=== PATIENT | male | born 1955 | race Asian ===

== ENCOUNTER → 2018-05-07 | Outpatient (CLI) | payer OTHER ==
[2018-05-10 11:08] LABS: CHLAMYDIA BY NAA Negative (Negative); GONOCOCCUS BY NAA Negative (Negative); TRICH VAG BY NAA Negative (Negative)
== END | disposition home or self-care (01) ==
LOC: LAB SHORT 10:50 → LAB EV 10:50
PROVIDERS: General Practice
DX: N50.82 Scrotal pain (principal)
CPT/HCPCS: 87086; 87491; 87591; 87661

== ENCOUNTER 2019-04-25 06:43 | Day surgery (SDC) | payer OTHER ==
[~2019-04-25] VITALS: Ht 149.9 cm; Wt 62.9 kg
--- NOTE | 2019-04-25 08:07 | NUR ---
04/25/19 0807 Munira Snyder DAUGHTER AT BEDSIDE HELPING WITH TRANSLATING
== END 2019-04-25 09:05 | disposition home or self-care (01) ==
LOC: ORSCSDS 06:43
PROVIDERS: Internal Medicine Gastroenterology
PROC: 0DBK8ZX Excision of Ascending Colon, Via Natural or Artificial Opening Endoscopic, Diagnostic (ICD-10-PCS; principal; 2019-04-25 08:00)
PROC: 0DBH8ZX Excision of Cecum, Via Natural or Artificial Opening Endoscopic, Diagnostic (ICD-10-PCS; principal; 2019-04-25 08:00)
PROC: 0DBL8ZX Excision of Transverse Colon, Via Natural or Artificial Opening Endoscopic, Diagnostic (ICD-10-PCS; principal; 2019-04-25 08:00)
PROC: 0DBP8ZX Excision of Rectum, Via Natural or Artificial Opening Endoscopic, Diagnostic (ICD-10-PCS; principal; 2019-04-25 08:00)
DX: Z12.11 Encounter for screening for malignant neoplasm of colon (principal); D12.3 Benign neoplasm of transverse colon; D12.2 Benign neoplasm of ascending colon; K62.1 Rectal polyp; K62.89 Other specified diseases of anus and rectum; K64.8 Other hemorrhoids; Z87.891 Personal history of nicotine dependence
CPT/HCPCS: 88305; J0330; J0461; J2405; J2704; J7120

== ENCOUNTER 2019-05-05 15:12 | Emergency (ER) | payer OTHER ==
[~2019-05-05] VITALS: Ht 149.9 cm; Wt 49.9 kg
[2019-05-05 16:23] LABS: BASOPHILS ABSOLUTE AUTO 0.06 K/mm3 (0.00-0.23); BASOPHILS PERCENT AUTO 0 % (0-2); EOSINOPHILS ABSOLUTE AUTO 1.51 K/mm3 (0.00-0.68); EOSINOPHILS PERCENT AUTO 11 % (0-6); Hematocrit 42.6 % (37.0-53.0); Hemoglobin 14.3 g/dL (13.5-17.5); IMMATURE GRAN ABSOLUTE AUTO 0.05 K/mm3 (0.00-0.10); IMMATURE GRAN PERCENT AUTO 0 % (0-1); LYMPHOCYTES ABSOLUTE AUTO 2.36 K/mm3 (0.84-5.20); LYMPHOCYTES PERCENT AUTO 17 % (21-46); MONOCYTES ABSOLUTE AUTO 0.78 K/mm3 (0.16-1.47); MONOCYTES PERCENT AUTO 6 % (4-13); Mean Corpuscular HGB 30.1 pg (26.0-34.0); Mean Corpuscular HGB Conc 33.6 g/dL (31.5-36.5); Mean Corpuscular Volume 90 fL (80-100); Mean Platelet Volume 8.7 fL (9.1-12.4); NEUTROPHILS ABSOLUTE AUTO 8.84 K/mm3 (1.96-9.15); NEUTROPHILS PERCENT AUTO 65 % (41-73); Platelet Count 261 K/mm3 (150-400); RDW Coefficient Variation 11.8 % (11.7-14.2); RDW Standard Deviation 38.8 fL (35.1-46.3); Red Blood Cell Count 4.75 M/mm3 (4.30-5.90)
[2019-05-05 16:42] LABS: Alanine Aminotransfer (ALT/SGP 22 U/L (12-78); Albumin, Blood 3.8 g/dL (3.4-5.0); Alk Phos 102 U/L (50-136); Anion Gap 8 mmol/L (6-16); Aspartate Aminotrans (AST/SGOT 19 U/L (12-37); Bilirubin, Total 0.5 mg/dL (0.1-1.0); Blood Urea Nitrogen 18 mg/dL (8-24); Bun/Creatinine Ratio 21.3 (12.0-20.0); CO2, Blood 26 mmol/L (21-32); Calcium, Blood 8.5 mg/dL (8.5-10.1); Chloride, Blood 107 mmol/L (98-108); Creatinine, Blood 0.84 mg/dL (0.60-1.20); Globulin, Blood 3.8 g/dL (2.2-4.0); Glomerular Filtration Rate >60 (60-); Glucose, Blood 120 mg/dL (70-99); Potassium, Blood 3.2 mmol/L (3.5-5.5); Sodium, Blood 141 mmol/L (136-145); Total Protein, Blood 7.6 g/dL (6.4-8.2)
== END 2019-05-05 22:26 | disposition short-term general hospital (02) ==
LOC: ER 15:12
PROVIDERS: Physician Assistant
DX: M97.02XA Periprosthetic fracture around internal prosthetic left hip joint, initial encounter (principal); Z87.891 Personal history of nicotine dependence
CPT/HCPCS: 27510; 36415; 71045; 73502; 73552; 80053; 85025; 86850; 86900; 86901; 93005; 93010; 96374-59; 96375-59; 99285-25; J1170; J3010

== ENCOUNTER 2021-11-01 16:35 | Inpatient (IN) | payer OTHER ==
[~2021-11-01] VITALS: Ht 149.9 cm; Wt 63.5 kg
[2021-11-01 17:12] LABS: BASOPHILS ABSOLUTE AUTO 0.04 K/mm3 (0.00-0.23); BASOPHILS PERCENT AUTO 0 % (0-2); EOSINOPHILS ABSOLUTE AUTO 0.08 K/mm3 (0.00-0.68); EOSINOPHILS PERCENT AUTO 0 % (0-6); Hematocrit 42.1 % (37.0-53.0); Hemoglobin 14.8 g/dL (13.5-17.5); IMMATURE GRAN PERCENT AUTO 1 % (0-1); LYMPHOCYTES ABSOLUTE AUTO 1.24 K/mm3 (0.84-5.20); LYMPHOCYTES PERCENT AUTO 6 % (21-46); MONOCYTES ABSOLUTE AUTO 1.16 K/mm3 (0.16-1.47); MONOCYTES PERCENT AUTO 6 % (4-13); Mean Corpuscular HGB 30.4 pg (26.0-34.0); Mean Corpuscular HGB Conc 35.2 g/dL (31.5-36.5); Mean Corpuscular Volume 86 fL (80-100); Mean Platelet Volume 8.8 fL (9.1-12.4); NEUTROPHILS ABSOLUTE AUTO 17.16 K/mm3 (1.96-9.15); NEUTROPHILS PERCENT AUTO 87 % (41-73); Platelet Count 257 K/mm3 (150-400); RDW Standard Deviation 38.2 fL (35.1-46.3); Red Blood Cell Count 4.87 M/mm3 (4.30-5.90); White Blood Cell Count 19.78 K/mm3 (4.00-11.30)
[2021-11-01 17:30] LABS: C-REACTIVE PROTEIN, EXT RANGE 15.6 mg/dL (0.000-0.300)
[2021-11-01 17:35] LABS: Albumin, Blood 3.9 g/dL (3.4-5.0); Albumin/Globulin Ratio 0.9 (0.8-1.8); Bun/Creatinine Ratio 24.6 (12.0-20.0); Calcium, Blood 9.5 mg/dL (8.5-10.1); Creatinine, Blood 0.81 mg/dL (0.60-1.20); Globulin, Blood 4.4 g/dL (2.2-4.0); Total Protein, Blood 8.3 g/dL (6.4-8.2)
[2021-11-01 18:24] LABS: Body Fluid Crystals NEG (NEGATIVE)
[2021-11-01 18:27] LABS: Automated BF RBC Count 0.051 M/mm3 (0-0); RBC Count, Body Fluid 51000 /mm3 (0-0)
[2021-11-01 20:46] LABS: Influenza A, PCR NEGATIVE (NEGATIVE); Influenza B, PCR NEGATIVE (NEGATIVE); Resp Syncytial Virus, PCR NEGATIVE (NEGATIVE)
[2021-11-01 20:56] LABS: SARS-Cov-2 (COVID-19) PCR, MMC POSITIVE (NEGATIVE)
[2021-11-01 21:29] LABS: Appearance, Body Fluid Cloudy (Clear); Color, Body Fluid Amber (None-Yellow); Total Cell Count, Body Fluid 100
--- NOTE | 2021-11-02 00:36 | NUR ---
PT SPEAKS VISAYAN, A DIALECT FROM THE [facility]. HE STATES HE DOES NOT UNDERSTAND ALL MY QUESTIONS. RN ATTEMPTED EXERCISE SCIENCE INTERNSHIP TELEPHONE, NO EXERCISE SCIENCE INTERNSHIP AVAILABLE AT THIS TIME. RN ATTEMPTED TO CALL PT'S DAUGHTER AT HOME, SHE DIDN'T ANSWER AND A VOICEMAIL BOX WAS NOT SET UP. UNABLE TO ACCURATELY COMPLETE HISTORY SCREENING AT THIS TIME.
--- NOTE | 2021-11-02 01:08 | NUR ---
PANTERA ARRIVED TO SURGICAL FLOOR AT 2303, VIA ER GURNEY POWERED BY WOUND NURSE. PT WAS TRANSFERRED TO SURGICAL BED VIA A SLIDE SHEET WITH HELP OF THREE STAFF. VSS, SLIGHTLY TACHY AT 102. ROOM AIR. PT SPEAKS VISAYAN, A [place] DIALECT. RN ATTEMPTED INTERPTER LINE, THERE WAS NO TAGALOG OR VISAYAN INTREPRETER AVAILABLE. RN CALLED DAUGHTER HAI AT [phone], SHE DIDN'T ANSWER AND NO VOICEMAIL BOX SET UP. PT STATED THERE WAS NO ONE ELSE TO CALL. UNABLE TO OBTAIN MEDICAL HISTORY OR RECONCILE MEDICATIONS BECAUSE PT STATED, "I DON'T UNDERSTAND." SKIN IS C/D/I. DARK DISCOLORATION TO BLE, FLAKING/PEELING SKIN. PER ER NOTE, PT AND FAMILY HAD COVID THREE WEEKS AGO. HE IS TESTING POSITIVE FOR COVID TODAY IN ER, WITH A WET PRODUCTIVE COUGH. OR RN, PT WAS FEBRILE, TACHYCARDIC, WITH SHAKES. NOW PT RATES HIS PAIN 8/10, RECEIVES 4MG MORPHINE IV PER EMAR. PT HAS 20G IV TO LEFT AC, RECEIVING LACTATED RINGERS AT 150 MLS/HR. CALL BUTTON IN HAND. INSTRUCTED TO CALL FOR HELP. BED ALARM ON FOR SAFETY.
[2021-11-02 04:46] LABS: BASOPHILS ABSOLUTE AUTO 0.03 K/mm3 (0.00-0.23); BASOPHILS PERCENT AUTO 0 % (0-2); EOSINOPHILS ABSOLUTE AUTO 0.25 K/mm3 (0.00-0.68); EOSINOPHILS PERCENT AUTO 2 % (0-6); Hematocrit 37.1 % (37.0-53.0); Hemoglobin 12.6 g/dL (13.5-17.5); IMMATURE GRAN ABSOLUTE AUTO 0.06 K/mm3 (0.00-0.10); IMMATURE GRAN PERCENT AUTO 1 % (0-1); LYMPHOCYTES ABSOLUTE AUTO 1.74 K/mm3 (0.84-5.20); LYMPHOCYTES PERCENT AUTO 14 % (21-46); MONOCYTES PERCENT AUTO 8 % (4-13); Mean Corpuscular Volume 88 fL (80-100); NEUTROPHILS ABSOLUTE AUTO 9.21 K/mm3 (1.96-9.15); NEUTROPHILS PERCENT AUTO 75 % (41-73); Platelet Count 209 K/mm3 (150-400); RDW Coefficient Variation 12.2 % (11.7-14.2); RDW Standard Deviation 39.4 fL (35.1-46.3); White Blood Cell Count 12.29 K/mm3 (4.00-11.30)
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
[2021-11-02 05:05] LABS: Bun/Creatinine Ratio 21.9 (12.0-20.0); Calcium, Blood 8.8 mg/dL (8.5-10.1); Creatinine, Blood 0.82 mg/dL (0.60-1.20); Magnesium, Blood 1.6 mg/dL (1.6-2.4); Potassium, Blood 3.1 mmol/L (3.5-5.5)
[2021-11-02 05:19] LABS: Body Fluid WBC Count 117220 /mm3 (0-999)
--- NOTE | 2021-11-02 05:30 | NUR ---
Received phone call from hematology - the total white count from the synovial fluid collected was entered incorrectly. The correct number is [phone].
--- NOTE | 2021-11-02 11:22 | NUR ---
[facility] CONTACT CONTACTED BY [facility] TRANSFER CENTER WHO STATED DR. GRACE WOULD POTENTIALLY BE ACCEPTING THE PATIENT WHEN A BED IS AVAILABLE PENDING AN UPDATE FROM OUR ORTHO SURGEON LATER TODAY.
--- NOTE | 2021-11-02 12:05 | NUR ---
[facility] UPDATE FAXED COVID TEST RESULTS PER [facility] REQUEST TO FAX#
--- NOTE | 2021-11-02 14:03 | NUR ---
11/02/21 1403 Ashlyn Marie PT ON SCHEDULED ANTIBIOTICS
--- NOTE | 2021-11-02 15:20 | NUR ---
RECOVERED IN OR DUE TO + COVID
--- NOTE | 2021-11-02 18:29 | NUR ---
SHIFT SUMMARY POD0 L KNEE I&D, A/OX 4,VSS, TOLERATING PO, USES URINAL, PAIN IMPROVED AFTER SURGERY. PT IS PENDING TRANSFER UP TO [facility] FOR CONTINUED CARE OF HIS LEFT KNEE WHICH HAS A SIGNIFICANT HISTORY OF PRIOR SURGERIES. ORTHO AT [facility] HAS ACCEPTED AND WE ARE CURRENTLY AWAITING AN AVIALABLE BED. PT AND HIS FAMILY HAS BEEN UPDATED ON THE SITUATION AND THE PENDING TRANSFER AND ARE OKAY WITH IT. PT SPEAKS MINIMAL [place] LEONEAN BUT IS ABLE TO COMMUNICATE BASIC REQUESTS, MORE INDEPTH CONVERSATIONS ARE ABLE TO BE TRANSLATED THOUGH HIS DAUGHTER FANTASMA. NO ACUTE EVENTS THIS SHIFT. CALL LIGHT IN REACH, WILL CTM AND REPORT TO ONCOMING NOC RN.
--- NOTE | 2021-11-03 04:06 | NUR ---
SUMMARY NO NEW ISSUES NOTED. PAIN MANAGED WELL. TERESA DRAINING PINK FLUID. PT DENIES SOB OR CX PAIN. PT HAS BEEN VOIDING WELL. PT HAS SLEPT SOUNDLY THROUGHOUT SHIFT. CALL LIGHT IN REACH.
[2021-11-03 04:23] LABS: BASOPHILS ABSOLUTE AUTO 0.03 K/mm3 (0.00-0.23); BASOPHILS PERCENT AUTO 0 % (0-2); EOSINOPHILS ABSOLUTE AUTO 0.79 K/mm3 (0.00-0.68); EOSINOPHILS PERCENT AUTO 9 % (0-6); Hematocrit 38.6 % (37.0-53.0); Hemoglobin 12.6 g/dL (13.5-17.5); IMMATURE GRAN ABSOLUTE AUTO 0.03 K/mm3 (0.00-0.10); IMMATURE GRAN PERCENT AUTO 0 % (0-1); LYMPHOCYTES ABSOLUTE AUTO 2.08 K/mm3 (0.84-5.20); LYMPHOCYTES PERCENT AUTO 23 % (21-46); MONOCYTES ABSOLUTE AUTO 0.74 K/mm3 (0.16-1.47); MONOCYTES PERCENT AUTO 8 % (4-13); Mean Corpuscular HGB 29.9 pg (26.0-34.0); Mean Corpuscular HGB Conc 32.6 g/dL (31.5-36.5); Mean Corpuscular Volume 92 fL (80-100); NEUTROPHILS ABSOLUTE AUTO 5.42 K/mm3 (1.96-9.15); NEUTROPHILS PERCENT AUTO 60 % (41-73); Platelet Count 216 K/mm3 (150-400); RDW Coefficient Variation 12.3 % (11.7-14.2); RDW Standard Deviation 41.1 fL (35.1-46.3); Red Blood Cell Count 4.21 M/mm3 (4.30-5.90); White Blood Cell Count 9.09 K/mm3 (4.00-11.30)
[2021-11-03 04:46] LABS: Anion Gap 8 mmol/L (6-16); Blood Urea Nitrogen 19 mg/dL (8-24); Bun/Creatinine Ratio 16.7 (12.0-20.0); CO2, Blood 25 mmol/L (21-32); Calcium, Blood 8.7 mg/dL (8.5-10.1); Chloride, Blood 105 mmol/L (98-108); Creatinine, Blood 1.14 mg/dL (0.60-1.20); Glomerular Filtration Rate 70 (60-); Glucose, Blood 118 mg/dL (70-99); Phosphorus, Blood 3.2 mg/dL (2.5-4.9); Potassium, Blood 3.4 mmol/L (3.5-5.5); Sodium, Blood 138 mmol/L (136-145)
--- NOTE | 2021-11-03 16:11 | NUR ---
SHIFT SUMMARY PT A&OX4/LANGUAGE BARRIER MINIMAL ISSUE WITH MY CARE TODAY USING COMMUNICATION BOARD/PAIN SCALE. POD1 I&D, IMMOBILIZER ON, NWB. PAIN MANAGED WITH 5 MG PERC. LANG PO. VOIDING WELL, USING URINAL. IVF NS @ 75 MLS/HR, ABX PER EMAR. WILL REPORT TO ONCOMING NOC RN.
[2021-11-03 18:16] LABS: Vancomycin, Trough 5.3 ug/mL (5.0-10.0)
[2021-11-04 05:47] LABS: Albumin, Blood 2.8 g/dL (3.4-5.0); Anion Gap 8 mmol/L (6-16); Blood Urea Nitrogen 12 mg/dL (8-24); Bun/Creatinine Ratio 13.3 (12.0-20.0); CO2, Blood 26 mmol/L (21-32); Calcium, Blood 8.2 mg/dL (8.5-10.1); Chloride, Blood 108 mmol/L (98-108); Creatinine, Blood 0.91 mg/dL (0.60-1.20); Glomerular Filtration Rate 92 (60-); Glucose, Blood 103 mg/dL (70-99); Phosphorus, Blood 2.4 mg/dL (2.5-4.9); Potassium, Blood 3.6 mmol/L (3.5-5.5); Sodium, Blood 142 mmol/L (136-145)
--- NOTE | 2021-11-04 06:42 | NUR ---
SHIFT SUMMARY POD2 L KNEE I&D, A/OX 4, VSS, TOLERATING PO, PAIN WELL MANAGED. LIMITED BOLIVIAN BUT ABLE TO MAKE NEEDS KNOWN. IV ABX SCHEDULED. [facility] CALLED FOR UPDATE AND REPORTED STILL NO BEDS AT THIS TIME. NO ACUTE EVENTS THIS SHIFT, CALL LIGHT IN REACH, WILL CTM AND REPORT TO ONCOMING DAY RN.
--- NOTE | 2021-11-04 15:34 | NUR ---
SHIFT SUMMARY PT A&OX4, VSS/RA/AFEBRILE/OCC COUGH, LANG PO REG DIET/MEDS WHOLE, VOIDING/URINAL, BSC/BM TODAY, PAIN MANAGED WITH 5MG PERCOCET PRN. IVF/ABX PER EMAR. POWERGLIDE PLACED TODAY IN RUE. POD2 I&D LLE, NWB, IMMOBILIZER ON. PT ABLE TO STAND AND PIVOT WITH FWW TO BSC/CHAIR/BED. OOB FOR MOST OF SHIFT TODAY. LANGUAGE BARRIER MINIMAL/PT UNDERSTANDS AND ANSWERS QUESTIONS APPROPRIATELY, ABLE TO MAKE NEEDS KNOWN. AWAITING [facility] TRANSFER. WILL REPORT TO ONCOMING NOC RN.
[2021-11-04 18:09] LABS: Vancomycin, Trough 4.9 ug/mL (5.0-10.0)
--- NOTE | 2021-11-05 04:50 | NUR ---
FLOW MANAGER SUMMARY NO ACUTE CHANGES THIS SHIFT. PT AAOX4 AND PLEASANT. PT IS ABLEL TO MAKE MOST OF HIS NEEDS KNOWN AND CAN COMMUNICATE FAIRLY WELL DESPITE THE LANGUAGE BARRIER. PT REQUIRED PAIN MEDS X1 LATER IN THE SHIFT FOR L KNEE PAIN. SMALL AMOUNT OF SEROSANGUINOUS DRAINAGE TO TERESA DRAIN. VSS, WILL CONTINUE TO MONITOR.
[2021-11-05 06:34] LABS: Albumin, Blood 2.9 g/dL (3.4-5.0); Anion Gap 7 mmol/L (6-16); Blood Urea Nitrogen 11 mg/dL (8-24); Bun/Creatinine Ratio 14.1 (12.0-20.0); CO2, Blood 28 mmol/L (21-32); Calcium, Blood 8.5 mg/dL (8.5-10.1); Chloride, Blood 106 mmol/L (98-108); Creatinine, Blood 0.78 mg/dL (0.60-1.20); Glomerular Filtration Rate 98 (60-); Glucose, Blood 103 mg/dL (70-99); Phosphorus, Blood 2.7 mg/dL (2.5-4.9); Potassium, Blood 3.5 mmol/L (3.5-5.5); Sodium, Blood 141 mmol/L (136-145)
--- NOTE | 2021-11-05 19:27 | NUR ---
SHIFT SUMMARY POD3 L KNEE I&D, A/O X4, VSS, TOLERATING PO, PAIN TOLERABLE THIS SHIFT AND PT DENIED NEED FOR PAIN MEDICATIONS, ABLE TO TRANSFER SELF FROM BED TO CHAIR OR BSC INDEPENDENTLY, CALLS APPROPRIATELY, SMALL AMT SS DRAINAGE FROM TERESA DRAIN. LANGUAGE BARRIER RESTRICTS VERBAL COMMUNICATION BUT PT IS ABLE TO MAKE BASIC NEEDS KNOWN THOUGH SOME WHAT DIFFICULT AT TIMES. DISCUSSED POSSIBITY OF DISCHARGE HOME IF PT CAN GET AN OUTPATIENT APPOINTMENT WITH DR. VASQUEZ AT [facility] WITHIN 7 DAYS AND HAVE PT ON ABX IN THE INTERIM. WILL DISCUSS THIS WITH CARE MANAGEMENT TOMORROW. NO ACUTE EVENTS THIS SHIFT, CALL LIGHT IN REACH, REPORT GIVEN TO NOC RN.
--- NOTE | 2021-11-06 04:51 | NUR ---
ELECTRONIC INTEGRATED SYSTEMS MECHANIC SUMMARY NO ACUTE CHANGES THIS SHIFT. PT AAOX4 AND PLEASANT. MINIMAL DRAINAGE INTO L KNEE TERESA DRAIN. PT MEDICATED FOR PAIN AT BEDTIME AND HAS SLEPT MOST OF THE NIGHT WITH NO ISSUES. CONTINUING IV ABX. STILL WAITING ON BED AT [facility]. VSS, WILL CONTINUE TO MONITOR.
[2021-11-06 08:30] LABS: Albumin, Blood 3.2 g/dL (3.4-5.0); Anion Gap 9 mmol/L (6-16); Blood Urea Nitrogen 13 mg/dL (8-24); Bun/Creatinine Ratio 15.2 (12.0-20.0); CO2, Blood 29 mmol/L (21-32); Calcium, Blood 9.2 mg/dL (8.5-10.1); Chloride, Blood 102 mmol/L (98-108); Creatinine, Blood 0.85 mg/dL (0.60-1.20); Glomerular Filtration Rate 95 (60-); Glucose, Blood 113 mg/dL (70-99); Phosphorus, Blood 2.5 mg/dL (2.5-4.9); Potassium, Blood 4.2 mmol/L (3.5-5.5); Sodium, Blood 140 mmol/L (136-145); Vancomycin, Trough 14.1 ug/mL (5.0-10.0)
[2021-11-06] MEDS ORDERED: HYDACE10B PO ×2 (14:20)
[2021-11-06] MEDS ORDERED: MIRALAX17 GM PO ×2 (14:21)
[2021-11-06] MEDS ORDERED: POTA10T PO ×2 (14:22)
[2021-11-06] MEDS ORDERED: VISBIOME 112.51 EACH PO ×2 (14:23)
[2021-11-06] MEDS ORDERED: RIFA300 PO ×2 (14:24)
[2021-11-06] MEDS ORDERED: LISI20 PO ×2 (14:24)
--- NOTE | 2021-11-06 17:47 | NUR ---
DISCHARGE SUMMARY DISCUSSED HOME CARE OF THE IMMOBILIZER, DRAIN MAINTENANCE AND KEEPING A LOG OF THE DRAINAGE. DISCUSSED SCHEDULED IV INFUSIONS HERE AT THE [facility] AND HOME CARE OF THE POWERGLIDE AND DRESSING. PT AND FAMILY LEFT AFTER HE WALKER WAS DELIVERED AND BEFORE OBTAINING SIGNIURE ON DISCHARGE FORM.
[2021-11-07] MEDS ORDERED: VANCOMYCIN HCL1 G1 IV (10:25)
== END 2021-11-06 17:03 | disposition home or self-care (01) | DRG 853 ==
LOC: ER 16:35 → SURS 21:00
PROVIDERS: Emergency Medicine; Internal Medicine; Orthopaedic Surgery; Physician Assistant; ADMIT Family Medicine
PROC: 8E0ZXY6 Isolation (ICD-10-PCS; 2021-11-01)
PROC: 3E03329 Introduction of Other Anti-infective into Peripheral Vein, Percutaneous Approach (ICD-10-PCS; 2021-11-01)
PROC: 0S9D0ZZ Drainage of Left Knee Joint, Open Approach (ICD-10-PCS; principal; 2021-11-02 09:30)
DX: A41.9 Sepsis, unspecified organism (principal); U07.1 COVID-19; M00.062 Staphylococcal arthritis, left knee; I10 Essential (primary) hypertension; E87.6 Hypokalemia; Z96.652 Presence of left artificial knee joint; Z98.890 Other specified postprocedural states; Z87.891 Personal history of nicotine dependence
CPT/HCPCS: 0241U; 20610; 36415; 71045; 73562-LT; 80048; 80053; 80069; 80202; 83605; 83735; 85025; 86140; 89051; 89060; 96365-59; 96367-59; 96375-59; 97116; 97162; 97165; 97530; 97535; 99285-25; A9270; J1650; J1885; J2270; J2370; J2405; J2543; J2704; J3010; J3370; J7030; J7050; J7060; J7120

== ENCOUNTER 2021-11-07 00:29 | Day surgery (SDC) | payer OTHER ==
[~2021-11-07 00:29] MED LIST: HYDACE10B PO; LISI20 PO; MIRALAX17 GM PO; POTA10T PO; RIFA300 PO; VISBIOME 112.51 EACH PO
[2021-11-07] MEDS ORDERED: VANCOMYCIN HCL1 G1 IV (10:25)
== END 2021-11-07 16:50 | disposition home or self-care (01) ==
LOC: ATC 00:29
DX: A41.9 Sepsis, unspecified organism (principal); M00.9 Pyogenic arthritis, unspecified; U07.1 COVID-19; E87.6 Hypokalemia; I10 Essential (primary) hypertension
CPT/HCPCS: 96365; J3370; J7060

== ENCOUNTER 2021-11-08 07:12 | Day surgery (SDC) | payer OTHER ==
[~2021-11-08 07:12] MED LIST changes: +VANCOMYCIN HCL1 G1 IV
[2021-11-08 16:28] LABS: Creatinine, Blood 0.87 mg/dL (0.60-1.20); Glomerular Filtration Rate 95 (60-); Vancomycin, Trough 18.9 ug/mL (5.0-10.0)
== END 2021-11-08 17:55 | disposition home or self-care (01) ==
LOC: ATC 07:12
PROVIDERS: Family Medicine
DX: A41.9 Sepsis, unspecified organism (principal); M00.09 Staphylococcal polyarthritis; U07.1 COVID-19; E87.6 Hypokalemia; I10 Essential (primary) hypertension
CPT/HCPCS: 80202; 82565; 96365; J3370; J7060

== ENCOUNTER 2021-11-09 07:19 | Day surgery (SDC) | payer OTHER | END 2021-11-09 23:24 | disposition home or self-care (01) | LOC: ATC 07:19 | DX: A41.9 Sepsis, unspecified organism (principal); M00.9 Pyogenic arthritis, unspecified; U07.1 COVID-19; E87.6 Hypokalemia; I10 Essential (primary) hypertension | CPT/HCPCS: 96365; 96366; J3370; J7060 ==

== ENCOUNTER 2021-11-10 05:59 | Day surgery (SDC) | payer OTHER | END 2021-11-10 09:32 | disposition home or self-care (01) | LOC: ATC 05:59 | DX: T84.54XA Infection and inflammatory reaction due to internal left knee prosthesis, initial encounter (principal) | CPT/HCPCS: 96365; 96366; J3370; J7050; J7060 ==

== ENCOUNTER 2021-11-11 02:49 | Day surgery (SDC) | payer OTHER ==
[2021-11-11 08:18] LABS: Vancomycin, Trough 13.7 ug/mL (5.0-10.0)
== END 2021-11-11 22:51 | disposition home or self-care (01) ==
LOC: ATC 02:49
PROVIDERS: Family Medicine
DX: A41.9 Sepsis, unspecified organism (principal); M00.062 Staphylococcal arthritis, left knee; B95.62 Methicillin resistant Staphylococcus aureus infection as the cause of diseases classified elsewhere; U07.1 COVID-19; E87.6 Hypokalemia; I10 Essential (primary) hypertension
CPT/HCPCS: 80202; 96365; 96366; J3370; J7050

== ENCOUNTER 2021-11-12 01:36 | Day surgery (SDC) | payer OTHER | END 2021-11-12 09:35 | disposition home or self-care (01) | LOC: ATC 01:36 | DX: M00.9 Pyogenic arthritis, unspecified (principal); I10 Essential (primary) hypertension; E87.6 Hypokalemia; U07.1 COVID-19 | CPT/HCPCS: 96365; 96366; J3370; J7060 ==

== ENCOUNTER 2021-11-13 01:52 | Day surgery (SDC) | payer OTHER | END 2021-11-13 09:55 | disposition home or self-care (01) | LOC: ATC 01:52 | DX: A41.9 Sepsis, unspecified organism (principal); M00.9 Pyogenic arthritis, unspecified; U07.1 COVID-19; E87.6 Hypokalemia; I10 Essential (primary) hypertension | CPT/HCPCS: 96365; 96366; C1751; J3370; J7060 ==

== ENCOUNTER 2021-11-14 01:09 | Day surgery (SDC) | payer OTHER ==
[2021-11-14 09:00] LABS: Creatinine, Blood 0.85 mg/dL (0.60-1.20); Vancomycin, Trough 12.5 ug/mL (5.0-10.0)
== END 2021-11-14 10:56 | disposition home or self-care (01) ==
LOC: ATC 01:09
PROVIDERS: Family Medicine
DX: A41.9 Sepsis, unspecified organism (principal); M00.09 Staphylococcal polyarthritis; U07.1 COVID-19; E87.6 Hypokalemia; I10 Essential (primary) hypertension
CPT/HCPCS: 80202; 82565; 96365; 96366; J3370; J7060

== ENCOUNTER 2021-11-15 07:13 | Day surgery (SDC) | payer OTHER | END 2021-11-15 09:25 | disposition home or self-care (01) | LOC: ATC 07:13 | DX: M00.9 Pyogenic arthritis, unspecified (principal); I10 Essential (primary) hypertension; E87.6 Hypokalemia; U07.1 COVID-19 | CPT/HCPCS: 96365; J3370; J7060 ==

== ENCOUNTER 2021-11-16 07:19 | Day surgery (SDC) | payer OTHER | END 2021-11-16 09:19 | disposition home or self-care (01) | LOC: ATC 07:19 | DX: M00.9 Pyogenic arthritis, unspecified (principal); I10 Essential (primary) hypertension; E87.6 Hypokalemia; U07.1 COVID-19 | CPT/HCPCS: 96365; 96366; J3370; J7060 ==

== ENCOUNTER 2021-11-17 01:51 | Day surgery (SDC) | payer OTHER ==
[2021-11-17 08:20] LABS: Creatinine, Blood 0.72 mg/dL (0.60-1.20); Vancomycin, Trough 11.9 ug/mL (5.0-10.0)
== END 2021-11-17 10:25 | disposition home or self-care (01) ==
LOC: ATC 01:51
PROVIDERS: Family Medicine
DX: M00.9 Pyogenic arthritis, unspecified (principal); I10 Essential (primary) hypertension; E87.6 Hypokalemia; U07.1 COVID-19
CPT/HCPCS: 80202; 82565; 96365; 96366; J3370; J7060

== ENCOUNTER 2021-11-18 00:57 | Day surgery (SDC) | payer OTHER | END 2021-11-18 09:40 | disposition home or self-care (01) | LOC: ATC 00:57 | DX: M00.9 Pyogenic arthritis, unspecified (principal); I10 Essential (primary) hypertension; E87.6 Hypokalemia; U07.1 COVID-19 | CPT/HCPCS: 96365; 96366; J3370; J7060 ==

== ENCOUNTER 2021-11-19 07:33 | Day surgery (SDC) | payer OTHER | END 2021-11-19 09:30 | disposition home or self-care (01) | LOC: ATC 07:33 | DX: M00.9 Pyogenic arthritis, unspecified (principal); I10 Essential (primary) hypertension; E87.6 Hypokalemia; U07.1 COVID-19 | CPT/HCPCS: 96365; 96366; J3370; J7060 ==

== ENCOUNTER 2021-11-20 01:57 | Day surgery (SDC) | payer OTHER | END 2021-11-20 09:27 | disposition home or self-care (01) | LOC: ATC 01:57 | DX: A41.9 Sepsis, unspecified organism (principal); M00.9 Pyogenic arthritis, unspecified; U07.1 COVID-19; E87.6 Hypokalemia; I10 Essential (primary) hypertension | CPT/HCPCS: 96365; 96366; J3370; J7060 ==

== ENCOUNTER 2024-07-02 11:40 | Emergency (ER) | payer OTHER ==
[~2024-07-02] VITALS: Ht 149.9 cm; Wt 65.8 kg
[~2024-07-02 11:40] MED LIST changes: +Diflucan100 MG PO; +METO50ER PO; +OMEP20ER PO
[2024-07-02 11:59] VITALS: BP 166/74
[2024-07-02 12:46] LABS: CORONAVIRUS COVID-19 AG Negative (NEGATIVE); INFLUENZA A AG Negative (NEGATIVE); INFLUENZA B AG Negative (NEGATIVE)
[2024-07-02] MEDS ORDERED: Dexamethasone Sod Phos 10 MG/ML 1ML VIAL PO ONE (14:05)
[2024-07-02] MEDS ORDERED: BENZ100A PO (14:33)
== END 2024-07-02 14:42 | disposition home or self-care (01) ==
LOC: ER 11:40
PROVIDERS: Student in an Organized Health Care Education/Training Program
DX: J04.0 Acute laryngitis (principal); I10 Essential (primary) hypertension; Z79.899 Other long term (current) drug therapy
CPT/HCPCS: 71046; 87081; 87428-QW; 87430; 99283-25; J1100